=== PATIENT | female | born 2000 | race Caucasian/White ===

== ENCOUNTER 2021-06-07 12:51 | Outpatient (CLI) | payer OTHER | END 2021-06-07 13:18 | disposition home or self-care (01) | LOC: RAD 12:51 | PROVIDERS: ATTEND Orthopaedic Surgery Sports Medicine | DX: S93.402A Sprain of unspecified ligament of left ankle, initial encounter (principal); M79.672 Pain in left foot | CPT/HCPCS: 73718; 73721 ==